=== PATIENT | male | born 1995 | race Caucasian/White ===

== ENCOUNTER → 2019-12-20 | Outpatient (REF) | payer SELFPAY | LOC: M LAB REF 15:47 | PROVIDERS: ATTEND Surgery | DX: L05.01 Pilonidal cyst with abscess (principal) ==

== ENCOUNTER → 2020-10-13 | Outpatient (CLI) | payer SELFPAY | LOC: M LABSMTC 13:26 | PROVIDERS: ATTEND Pediatrics | DX: Z20.828 Contact with and (suspected) exposure to other viral communicable diseases (principal) ==

== ENCOUNTER → 2021-06-02 | Outpatient (CLI) | payer BC ==
[2021-06-02 15:01] LABS: HIV 1&2 SCREEN CENTAUR NEGATIVE (NEGATIVE)
== END ==
LOC: M PLALAB 08:56
PROVIDERS: ATTEND Student in an Organized Health Care Education/Training Program
DX: F41.9 Anxiety disorder, unspecified (principal)